=== PATIENT | female | born 1945 | race Caucasian/White ===

== ENCOUNTER 2023-09-18 10:51 | Inpatient (IN) | payer MEDICAID, OTHER ==
[~2023-09-18] VITALS: Ht 162.6 cm; Wt 74.4 kg
[~2023-09-18 10:51] MED LIST: ASPI-1497 PO; Levothyroxine Sodium PO
[2023-09-18 12:02] LABS: BASOPHILS % 0.5 % (0.0-2.0); EOSINOPHILS % 0.3 % (0.0-5.0); HEMATOCRIT. 42.9 % (36.0-48.0); HEMOGLOBIN. 14.5 g/dL (12.0-16.0); LYMPHOCYTES % 20.7 % (20.0-50.0); MEAN CORPUSCULAR HEMOGLOBIN 30.3 pg (28.0-32.0); MEAN CORPUSCULAR HGB CONC 33.7 g/dL (31.0-37.0); MEAN PLATELET VOLUME 10.1 fl (7.4-10.4); MONOCYTES % 7.2 % (2.0-8.0); NEUTROPHILS % 71.3 % (40.0-76.0); PLATELET 214 x1000/uL (130-400); RED BLOOD CELL COUNT 4.77 mill/uL (4.2-5.4); RED CELL DISTRIBUTION WIDTH 14.3 % (11.6-14.6); WHITE BLOOD COUNT 6.4 x1000/uL (4.5-11.0)
[2023-09-18 12:08] LABS: CHLORIDE 105 mEq/L (98-107); POTASSIUM 3.8 mEq/L (3.5-5.1); SODIUM 140 mEq/L (136-145)
[2023-09-18 12:09] LABS: CALCIUM 10.3 mg/dL (8.7-10.4); CARBON DIOXIDE 26 mEq/L (21-32)
[2023-09-18 12:14] LABS: CREATININE 0.9 mg/dL (0.6-1.0); GLUCOSE 113 mg/dL (70-105); UREA NITROGEN BLOOD 11 mg/dL (9-23)
[2023-09-18 12:15] LABS: TROPONIN I HIGH SENSITIVITY 5 ng/L (3.0-34)
[2023-09-18 12:16] LABS: ALANINE AMINOTRANSFERASE 35 IU/L (10-49); ALBUMIN 4.8 g/dL (3.2-4.8); ASPARTATE AMINOTRANSFERASE 22 IU/L (<34); BILIRUBIN TOTAL 0.6 mg/dL (0.1-1.0); PROTEIN TOTAL 8.3 g/dL (6.0-8.3)
[2023-09-18] MEDS ORDERED: GUAIFENESIN 200MG/10ML SUGAR FREE UDC PO PRN (14:00)
[2023-09-18] MEDS ORDERED: IPRATROPIUM/ALBUTEROL 0.5-3(2.5)MG/3ML NEB HHN PRN (14:00)
[2023-09-18] MEDS ORDERED: ACETAMINOPHEN 325MG TABLET PO PRN ×2 (14:00)
[2023-09-18] MEDS ORDERED: CLONIDINE 0.1MG TABLET PO PRN (14:00)
[2023-09-18] MEDS ORDERED: MAGNESIUM/ALUMINUM HYDROXIDE/SIMETHICONE 30ML UDC PO PRN (14:00)
[2023-09-18 15:03] LABS: CLARITY URINE CLEAR (CLEAR); COLOR URINE YELLOW (YELLOW); GLUCOSE URINE NEGATIVE (NEGATIVE); KETONES URINE NEGATIVE (NEGATIVE); LEUKOCYTE ESTERASE URINE 1+ (NEGATIVE); NITRITE URINE NEGATIVE (NEGATIVE); OCCULT BLOOD URINE NEGATIVE (NEGATIVE); PROTEIN URINE NEGATIVE (NEGATIVE); SPECIFIC GRAVITY URINE 1.006 (1.005-1.030); UROBILINOGEN URINE 0.2 E.U./dL (0.2-1.0)
[2023-09-18 15:15] LABS: BACTERIA URINE TRACE; RBC URINE 0-2 /hpf (0-2); SQUAMOUS EPITHELIAL CELL URINE 1+ /lpf (RARE/1+); YEAST URINE NONE SEEN
[2023-09-18 17:48] LABS: CREATINE KINASE MB FRACTION < 0.5 ng/mL (0.5-3.6)
[2023-09-18 17:49] LABS: DIGOXIN 0.9 ng/mL (0.8-2.0); PHOSPHORUS 4.5 mg/dL (2.5-4.9); TROPONIN I HIGH SENSITIVITY 6 ng/L (3.0-34)
[2023-09-18 17:50] LABS: CREATINE KINASE 45 IU/L (34-145)
[2023-09-18] MEDS ORDERED: LEVO100T9 PO (17:54)
[2023-09-18] MEDS ORDERED: OMEP20CA14 PO (17:54)
[2023-09-18] MEDS ORDERED: METO100T16 PO (17:54)
[2023-09-18] MEDS ORDERED: DILT360T13 PO (17:54)
[2023-09-18] MEDS ORDERED: ATOR40TA70 PO (17:54)
[2023-09-18] MEDS ORDERED: APIX5TAB PO (17:54)
[2023-09-18] MEDS ORDERED: DIGO125T80 PO (17:54)
[2023-09-18] MEDS ORDERED: FURO20TA4 PO (17:54)
[2023-09-18 17:56] VITALS: BP 104/61; PULSE 62; RESP 16; TEMP 97.3
[2023-09-18 17:58] VITALS: BP 104/61; PULSE 62; RESP 16; TEMP 97.3
[2023-09-18 20:00] VITALS: BP 100/45; RESP 19; TEMP 97.7
[2023-09-18] MEDS: METOPROLOL TARTRATE 25MG TABLET PO SCH (21:39)
[2023-09-18] MEDS: ATORVASTATIN CALCIUM 40MG TABLET PO SCH (21:52)
[2023-09-18] MEDS: DIGOXIN 125MCG TABLET PO SCH (21:52)
[2023-09-18] MEDS: FAMOTIDINE 20MG TABLET PO SCH (21:53)
[2023-09-18] MEDS: APIXABAN 5 MG TABLET PO SCH (21:53)
[2023-09-18 23:01] LABS: HEPATITIS C AB NON REACTIVE (Neg) (Negative)
[2023-09-18 23:07] LABS: HEPATITIS B SURFACE ANTIGEN NEGATIVE (Negative)
[2023-09-19] VITALS (14 sets, daily range): BP systolic 94–143; BP diastolic 43–107; PULSE 68–144; RESP 18–37; TEMP 97.5–98.4
[2023-09-19 00:35] LABS: CREATINE KINASE MB FRACTION < 0.5 ng/mL (0.5-3.6)
[2023-09-19 00:36] LABS: CREATINE KINASE 37 IU/L (34-145)
[2023-09-19 00:40] LABS: TROPONIN I HIGH SENSITIVITY < 4 ng/L (3.0-34)
[2023-09-19 06:36] LABS: BASOPHILS % 0.5 % (0.0-2.0); EOSINOPHILS % 0.8 % (0.0-5.0); HEMATOCRIT. 39.5 % (36.0-48.0); HEMOGLOBIN. 13.3 g/dL (12.0-16.0); LYMPHOCYTES % 28.8 % (20.0-50.0); MEAN CORPUSCULAR HEMOGLOBIN 29.7 pg (28.0-32.0); MEAN CORPUSCULAR HGB CONC 33.5 g/dL (31.0-37.0); MEAN CORPUSCULAR VOLUME 88.5 fL (81.0-99.0); MEAN PLATELET VOLUME 10.5 fl (7.4-10.4); MONOCYTES % 11.2 % (2.0-8.0); NEUTROPHILS % 58.7 % (40.0-76.0); PLATELET 200 x1000/uL (130-400); RED BLOOD CELL COUNT 4.47 mill/uL (4.2-5.4); RED CELL DISTRIBUTION WIDTH 14.3 % (11.6-14.6); WHITE BLOOD COUNT 7.2 x1000/uL (4.5-11.0)
[2023-09-19 06:57] LABS: CHLORIDE 104 mEq/L (98-107); POTASSIUM 3.6 mEq/L (3.5-5.1); SODIUM 141 mEq/L (136-145)
[2023-09-19 06:59] LABS: CALCIUM 9.5 mg/dL (8.7-10.4); CARBON DIOXIDE 27 mEq/L (21-32)
[2023-09-19 07:03] LABS: THYROID STIMULATING HORMONE 1.51 uIU/mL (0.55-4.78)
[2023-09-19 07:04] LABS: CREATININE 0.8 mg/dL (0.6-1.0); GLUCOSE 89 mg/dL (70-105); TRIGLYCERIDE 91 mg/dL (0-150); UREA NITROGEN BLOOD 15 mg/dL (9-23)
[2023-09-19 07:05] LABS: LDL CHOLESTEROL 78 mg/dL (5-100)
[2023-09-19 07:06] LABS: ALANINE AMINOTRANSFERASE 25 IU/L (10-49); ASPARTATE AMINOTRANSFERASE 14 IU/L (<34); BILIRUBIN TOTAL 0.5 mg/dL (0.1-1.0); CHOLESTEROL 117 mg/dL (<200); HDL CHOLESTEROL 39 mg/dL (>65); PROTEIN TOTAL 6.9 g/dL (6.0-8.3)
[2023-09-19] MEDS ORDERED: DILTIAZEM HCL 180MG CAPSULE ER 24HR PO SCH (09:00)
[2023-09-19] MEDS: DILTIAZEM HCL 5MG/ML 5ML VIAL IV NR ×2 (11:39→15:35)
[2023-09-19] MEDS: DILTIAZEM HCL 125 MG in DEXT 5% WATER 100 ML IV SCH (12:50)
[2023-09-19 13:02] LABS: T4 FREE 1.57 ng/dL (0.89-1.76)
[2023-09-19] MEDS: NITROGLYCERIN 0.4MG TABLET SL SL PRN (18:10)
[2023-09-19 19:30] LABS: CARBON DIOXIDE 23 mEq/L (21-32); CHLORIDE 104 mEq/L (98-107); POTASSIUM 3.6 mEq/L (3.5-5.1); SODIUM 138 mEq/L (136-145)
[2023-09-19 19:31] LABS: CALCIUM 9.3 mg/dL (8.7-10.4)
[2023-09-19 19:35] LABS: CREATININE 0.9 mg/dL (0.6-1.0); GLUCOSE 106 mg/dL (70-105)
[2023-09-19 19:36] LABS: UREA NITROGEN BLOOD 15 mg/dL (9-23)
[2023-09-19 19:38] LABS: PHOSPHORUS 2.7 mg/dL (2.5-4.9)
[2023-09-19] MEDS: AMIODARONE 150MG/100ML 100 ML IV NR (20:04)
[2023-09-19] MEDS ORDERED: HEPARIN 60 UNITS/KG BOLUS IV NR (20:30)
[2023-09-19] MEDS: HEPARIN 60 UNITS/KG BOLUS IV NR (20:47)
[2023-09-19] MEDS: AMIODARONE HCL 900 MG in DEXT 5% WATER 500 ML IV PRN (20:56)
[2023-09-19] MEDS: HEPARIN 25,000 UNITS PREMIX 250 ML IV SCH (21:14)
[2023-09-20] VITALS (35 sets, daily range): BP systolic 96–176; BP diastolic 53–121; PULSE 67–130; RESP 11–30; TEMP 97.4–98.6
[2023-09-20 01:11] LABS: TROPONIN I HIGH SENSITIVITY 10 ng/L (3.0-34)
[2023-09-20] MEDS ORDERED: HEPARIN BOLUS PRN aPTT 30-44 IV (02:00)
[2023-09-20] MEDS ORDERED: HEPARIN BOLUS PRN aPTT <30 IV (02:00)
[2023-09-20 04:52] LABS: TROPONIN I HIGH SENSITIVITY 13 ng/L (3.0-34)
[2023-09-20 05:02] LABS: BG BASE EXCESS 2.8 mmol/L (-2.0-2.0); BG CARBOXYHEMOGLOBIN 0.3 % (0.5-1.5); BG DEOXYHEMOGLOBIN 1.3 % (0.0-5.0); BG FRACTION INSPIRED OXYGEN 32; BG HCO3 ACT 26.6 mmol/L (22.0-26.0); BG METHEMOGLOBIN 0.1 % (0.0-1.5); BG OXYGEN SATURATION 98.7 % (92.0-98.5); BG OXYHEMOGLOBIN 98.3 % (94.0-97.0); BG PCO2 38.3 mmHg (35.0-45.0); BG PO2 152.6 mmHg (75.0-100.0); BG SAMPLE SITE RIGHT RADIAL; BG TOTAL HEMOGLOBIN 14.7 g/dL (12.0-18.0); BG VENT MODE NASAL CANNULA
[2023-09-20] MEDS ORDERED: IOHEXOL-350 100 ML BOTTLE ONE (05:07)
[2023-09-20 05:56] LABS: HEMATOCRIT. 43.1 % (36.0-48.0); HEMOGLOBIN. 14.1 g/dL (12.0-16.0); WHITE BLOOD COUNT 6.9 x1000/uL (4.5-11.0)
[2023-09-20 05:57] LABS: EOSINOPHILS % 0.3 % (0.0-5.0); LYMPHOCYTES % 20.2 % (20.0-50.0); MEAN CORPUSCULAR HEMOGLOBIN 29.9 pg (28.0-32.0); MEAN CORPUSCULAR HGB CONC 32.6 g/dL (31.0-37.0); MEAN CORPUSCULAR VOLUME 91.8 fL (81.0-99.0); MEAN PLATELET VOLUME 9.7 fl (7.4-10.4); MONOCYTES % 9.6 % (2.0-8.0); NEUTROPHILS % 62.7 % (40.0-76.0); PLATELET 223 x1000/uL (130-400); RED CELL DISTRIBUTION WIDTH 14.7 % (11.6-14.6)
[2023-09-20 05:57] LABS: CHLORIDE 104 mEq/L (98-107); POTASSIUM 3.4 mEq/L (3.5-5.1); SODIUM 139 mEq/L (136-145)
[2023-09-20 05:58] LABS: CALCIUM 9.5 mg/dL (8.7-10.4); CARBON DIOXIDE 26 mEq/L (21-32)
[2023-09-20] MEDS: LORAZEPAM 2MG/ML INJ IV NR (05:59)
[2023-09-20 06:03] LABS: CREATININE 0.9 mg/dL (0.6-1.0); GLUCOSE 119 mg/dL (70-105); UREA NITROGEN BLOOD 11 mg/dL (9-23)
[2023-09-20 06:04] LABS: TROPONIN I HIGH SENSITIVITY 12 ng/L (3.0-34)
[2023-09-20] MEDS: POTASSIUM CHLORIDE 20MEQ TABLET SR PO NR (09:00)
[2023-09-20] MEDS: AMIODARONE HCL 200 MG TABLET PO SCH (09:15)
[2023-09-20] MEDS: DILTIAZEM HCL 60MG TABLET PO SCH (09:15)
[2023-09-20] MEDS ORDERED: OXYC-662 MT (11:31)
[2023-09-20] MEDS: DOCUSATE SODIUM 100MG CAPSULE PO PRN (14:16)
[2023-09-20 18:10] LABS: PHOSPHORUS 3.9 mg/dL (2.5-4.9)
[2023-09-21] VITALS (70 sets, daily range): BP systolic 93–139; BP diastolic 35–91; PULSE 66–129; RESP 11–28; TEMP 97.7–98.5
[2023-09-21 05:53] LABS: BASOPHILS % 0.5 % (0.0-2.0); HEMATOCRIT. 40.6 % (36.0-48.0); HEMOGLOBIN. 13.6 g/dL (12.0-16.0); LYMPHOCYTES % 20.7 % (20.0-50.0); MEAN CORPUSCULAR HEMOGLOBIN 29.9 pg (28.0-32.0); MEAN CORPUSCULAR HGB CONC 33.4 g/dL (31.0-37.0); MEAN CORPUSCULAR VOLUME 89.5 fL (81.0-99.0); MEAN PLATELET VOLUME 9.3 fl (7.4-10.4); NEUTROPHILS % 67.8 % (40.0-76.0); PLATELET 195 x1000/uL (130-400); RED BLOOD CELL COUNT 4.54 mill/uL (4.2-5.4); RED CELL DISTRIBUTION WIDTH 14.3 % (11.6-14.6); WHITE BLOOD COUNT 7.4 x1000/uL (4.5-11.0)
[2023-09-21 06:05] LABS: CHLORIDE 106 mEq/L (98-107); POTASSIUM 4.3 mEq/L (3.5-5.1); SODIUM 141 mEq/L (136-145)
[2023-09-21 06:06] LABS: CALCIUM 9.5 mg/dL (8.7-10.4); CARBON DIOXIDE 28 mEq/L (21-32)
[2023-09-21 06:12] LABS: CREATININE 0.8 mg/dL (0.6-1.0); GLUCOSE 93 mg/dL (70-105); UREA NITROGEN BLOOD 9 mg/dL (9-23)
[2023-09-21] MEDS: LEVOTHYROXINE SODIUM 100MCG TABLET PO SCH (07:43)
[2023-09-21] MEDS: DILTIAZEM HCL 60MG TABLET PO SCH (12:18)
[2023-09-22] VITALS: BP 106/65; PULSE 100; RESP 18; TEMP 97.9
[2023-09-22 04:00] VITALS: BP 129/69; PULSE 58; RESP 18; TEMP 97.8
[2023-09-22 07:39] LABS: CHLORIDE 107 mEq/L (98-107); POTASSIUM 4.2 mEq/L (3.5-5.1); SODIUM 140 mEq/L (136-145)
[2023-09-22 07:40] LABS: CARBON DIOXIDE 27 mEq/L (21-32)
[2023-09-22 07:41] LABS: CALCIUM 9.4 mg/dL (8.7-10.4)
[2023-09-22 07:45] LABS: BASOPHILS % 0.4 % (0.0-2.0); CREATININE 0.8 mg/dL (0.6-1.0); EOSINOPHILS % 0.8 % (0.0-5.0); GLUCOSE 87 mg/dL (70-105); HEMATOCRIT. 41.4 % (36.0-48.0); LYMPHOCYTES % 24.6 % (20.0-50.0); MEAN CORPUSCULAR HEMOGLOBIN 29.9 pg (28.0-32.0); MEAN CORPUSCULAR HGB CONC 33.8 g/dL (31.0-37.0); MEAN CORPUSCULAR VOLUME 88.6 fL (81.0-99.0); MEAN PLATELET VOLUME 9.8 fl (7.4-10.4); MONOCYTES % 10.1 % (2.0-8.0); NEUTROPHILS % 64.1 % (40.0-76.0); PLATELET 196 x1000/uL (130-400); RED BLOOD CELL COUNT 4.67 mill/uL (4.2-5.4); RED CELL DISTRIBUTION WIDTH 14.2 % (11.6-14.6); UREA NITROGEN BLOOD 7 mg/dL (9-23); WHITE BLOOD COUNT 7.2 x1000/uL (4.5-11.0)
[2023-09-22 08:00] VITALS: BP 126/69; PULSE 72; RESP 18; TEMP 97
[2023-09-22] MEDS ORDERED: LIDOCAINE 2% 6ML GLYDO MM ONE (08:24)
[2023-09-22] MEDS ORDERED: TETRACAINE/BENZOCAINE/BUTAMBEN 20 GM SPRAY MM ONE (08:25)
[2023-09-22] MEDS ORDERED: FENTANYL CITRATE/PF 50MCG/ML 2ML VIAL ONE (09:30)
[2023-09-22] MEDS ORDERED: MIDAZOLAM HCL 2 MG/2 ML VIAL ONE ×3 (09:30→15:37)
[2023-09-22] MEDS ORDERED: HEPARIN 1000 UNITS/ML 10ML ONE (09:52)
[2023-09-22 12:00] VITALS: BP 118/56; PULSE 73; RESP 18; TEMP 97.7
[2023-09-22] MEDS: AMIODARONE HCL 200 MG TABLET PO NR (13:03)
[2023-09-22] MEDS ORDERED: VANCOMYCIN HCL 500 MG/VIAL ONE (14:32)
[2023-09-22 16:00] VITALS: BP 116/43; PULSE 70; RESP 20; TEMP 98.6
[2023-09-22 20:00] VITALS: BP 120/53; PULSE 70; RESP 19; TEMP 97.5
[2023-09-22] MEDS: ONDANSETRON HCL 4MG/2ML INJ IV PRN (23:30)
[2023-09-23] VITALS: BP 121/47; PULSE 72; RESP 18; TEMP 97.2
[2023-09-23 04:49] VITALS: BP 117/56; PULSE 72; RESP 18; TEMP 97.7
[2023-09-23 06:49] LABS: BASOPHILS % 0.7 % (0.0-2.0); EOSINOPHILS % 1.3 % (0.0-5.0); HEMOGLOBIN. 13.1 g/dL (12.0-16.0); LYMPHOCYTES % 27.7 % (20.0-50.0); MEAN CORPUSCULAR HEMOGLOBIN 30.1 pg (28.0-32.0); MEAN CORPUSCULAR HGB CONC 33.6 g/dL (31.0-37.0); MEAN CORPUSCULAR VOLUME 89.7 fL (81.0-99.0); MEAN PLATELET VOLUME 10.1 fl (7.4-10.4); MONOCYTES % 10.7 % (2.0-8.0); NEUTROPHILS % 59.6 % (40.0-76.0); PLATELET 171 x1000/uL (130-400); RED BLOOD CELL COUNT 4.35 mill/uL (4.2-5.4); RED CELL DISTRIBUTION WIDTH 14.3 % (11.6-14.6); WHITE BLOOD COUNT 6.2 x1000/uL (4.5-11.0)
[2023-09-23 07:19] LABS: CARBON DIOXIDE 26 mEq/L (21-32); CHLORIDE 108 mEq/L (98-107); POTASSIUM 4.4 mEq/L (3.5-5.1); SODIUM 138 mEq/L (136-145)
[2023-09-23 07:20] LABS: CALCIUM 9.5 mg/dL (8.7-10.4)
[2023-09-23 07:24] LABS: CREATININE 0.9 mg/dL (0.6-1.0)
[2023-09-23 07:25] LABS: GLUCOSE 90 mg/dL (70-105); UREA NITROGEN BLOOD 12 mg/dL (9-23)
[2023-09-23 07:27] LABS: PHOSPHORUS 4.2 mg/dL (2.5-4.9)
[2023-09-23 08:00] VITALS: BP 120/82; PULSE 69; RESP 20; TEMP 97.7
[2023-09-23 12:00] VITALS: BP 117/55; PULSE 63; RESP 18; TEMP 98
[2023-09-23 16:00] VITALS: BP 126/64; PULSE 68; RESP 18; TEMP 97.9
[2023-09-23 20:35] VITALS: BP 115/39; PULSE 64; RESP 18; TEMP 99.1
[2023-09-24 00:25] VITALS: BP 117/46; PULSE 63; RESP 18; TEMP 98.2
[2023-09-24 04:37] VITALS: BP 125/50; PULSE 63; RESP 18; TEMP 97.9
[2023-09-24 07:02] LABS: BASOPHILS % 0.6 % (0.0-2.0); EOSINOPHILS % 1.4 % (0.0-5.0); HEMATOCRIT. 37.1 % (36.0-48.0); HEMOGLOBIN. 12.8 g/dL (12.0-16.0); LYMPHOCYTES % 28.6 % (20.0-50.0); MEAN CORPUSCULAR HEMOGLOBIN 30.2 pg (28.0-32.0); MEAN CORPUSCULAR HGB CONC 34.3 g/dL (31.0-37.0); MEAN CORPUSCULAR VOLUME 87.9 fL (81.0-99.0); MONOCYTES % 9.9 % (2.0-8.0); NEUTROPHILS % 59.5 % (40.0-76.0); PLATELET 179 x1000/uL (130-400); RED BLOOD CELL COUNT 4.22 mill/uL (4.2-5.4); RED CELL DISTRIBUTION WIDTH 14.6 % (11.6-14.6); WHITE BLOOD COUNT 6.4 x1000/uL (4.5-11.0)
[2023-09-24 07:12] LABS: CARBON DIOXIDE 26 mEq/L (21-32); CHLORIDE 107 mEq/L (98-107); POTASSIUM 4.3 mEq/L (3.5-5.1); SODIUM 140 mEq/L (136-145)
[2023-09-24 07:17] LABS: CREATININE 0.6 mg/dL (0.6-1.0)
[2023-09-24 07:18] LABS: GLUCOSE 86 mg/dL (70-105); UREA NITROGEN BLOOD 7 mg/dL (9-23)
[2023-09-24 07:20] LABS: PHOSPHORUS 3.6 mg/dL (2.5-4.9)
[2023-09-24 08:00] VITALS: BP 133/48; PULSE 70; RESP 19; TEMP 97.4
[2023-09-24] MEDS: AMIODARONE HCL 200 MG TABLET PO SCH (08:20)
[2023-09-24 09:04] VITALS: BP 133/48; PULSE 70; RESP 19; TEMP 97.4
[2023-09-24] MEDS ORDERED: METO25TA6 PO ×2 (10:11→11:06)
[2023-09-24] MEDS ORDERED: AMI2 PO ×2 (10:11→11:06)
[2023-09-24] MEDS ORDERED: DILT90CA MT ×2 (10:18→11:06)
[2023-09-24 10:47] VITALS: BP 143/62; PULSE 70; TEMP 97.8; O2SAT 99
[2023-09-24] MEDS ORDERED: DILTIAZEM HCL 30MG TABLET PO SCH (14:00)
== END 2023-09-24 11:45 | disposition home or self-care (01) | DRG 201 ==
LOC: ER 11:52 → EDBEDREQTM 12:55 → EDBEDREQ 12:55 → 7EST 17:37 → 5EST 09-19 11:10 → MICUSO 09-20 02:50 → 8WST 09-21 22:02
PROVIDERS: ADMIT Preventive Medicine Clinical Informatics; ATTEND Preventive Medicine Clinical Informatics
PROC: 5A2204Z Restoration of Cardiac Rhythm, Single (ICD-10-PCS; principal; 2023-09-22)
PROC: B24BZZ4 Ultrasonography of Heart with Aorta, Transesophageal (ICD-10-PCS; 2023-09-22)
DX: I48.19 Other persistent atrial fibrillation (principal); J96.01 Acute respiratory failure with hypoxia; E03.9 Hypothyroidism, unspecified; E78.5 Hyperlipidemia, unspecified; E11.9 Type 2 diabetes mellitus without complications; I48.92 Unspecified atrial flutter; I49.3 Ventricular premature depolarization; E87.6 Hypokalemia; F17.210 Nicotine dependence, cigarettes, uncomplicated; I10 Essential (primary) hypertension; Z86.73 Personal history of transient ischemic attack (TIA), and cerebral infarction without residual deficits; Z59.7 Insufficient social insurance and welfare support; Z79.01 Long term (current) use of anticoagulants; Z79.899 Other long term (current) drug therapy; Z82.49 Family history of ischemic heart disease and other diseases of the circulatory system
CPT/HCPCS: 36415; 36600; 71045; 71275; 80048; 80053; 80061; 80162; 81003; 82375; 82533; 82550; 82553; 82805; 82962; 83036; 83605; 83735; 83880; 84100; 84436; 84439; 84443; 84481; 84484; 85025; 85379; 86705; 87340; 92960; 93005; 93306; 93312; 93970; 99285; J0282; J1644; J2060; J2250; J2405; J3010; J3370; J3490; J7060; Q9967

== ENCOUNTER 2023-09-30 10:39 | Emergency (ER) | payer MEDICAID ==
[~2023-09-30] VITALS: Ht 162.6 cm; Wt 80.0 kg
[~2023-09-30 10:39] MED LIST changes: +AMI2 PO; +APIX5TAB PO; +ATOR40TA70 PO; +DIGO125T80 PO; +DILT90CA MT; +FURO20TA4 PO; +LEVO100T9 PO; -Levothyroxine Sodium PO; +METO25TA6 PO; +OMEP20CA14 PO
[2023-09-30 10:44] VITALS: BP 124/49; PULSE 68; RESP 18; TEMP 98.6; O2SAT 99
[2023-09-30 11:45] LABS: BASOPHILS % 0.4 % (0.0-2.0); EOSINOPHILS % 0.1 % (0.0-5.0); HEMATOCRIT. 40.1 % (36.0-48.0); HEMOGLOBIN. 13.4 g/dL (12.0-16.0); LYMPHOCYTES % 19.5 % (20.0-50.0); MEAN CORPUSCULAR HEMOGLOBIN 29.4 pg (28.0-32.0); MEAN CORPUSCULAR HGB CONC 33.5 g/dL (31.0-37.0); MEAN CORPUSCULAR VOLUME 87.7 fL (81.0-99.0); MEAN PLATELET VOLUME 9.2 fl (7.4-10.4); MONOCYTES % 9.6 % (2.0-8.0); NEUTROPHILS % 70.4 % (40.0-76.0); PLATELET 197 x1000/uL (130-400); RED BLOOD CELL COUNT 4.57 mill/uL (4.2-5.4); RED CELL DISTRIBUTION WIDTH 14.3 % (11.6-14.6); WHITE BLOOD COUNT 7.1 x1000/uL (4.5-11.0)
[2023-09-30 11:51] LABS: CHLORIDE 107 mEq/L (98-107); SODIUM 139 mEq/L (136-145)
[2023-09-30 11:52] LABS: CARBON DIOXIDE 23 mEq/L (21-32)
[2023-09-30 11:53] LABS: CALCIUM 9.7 mg/dL (8.7-10.4)
[2023-09-30 11:57] LABS: CREATININE 0.9 mg/dL (0.6-1.0); GLUCOSE 107 mg/dL (70-105); UREA NITROGEN BLOOD 11 mg/dL (9-23)
[2023-09-30 12:48] LABS: ALANINE AMINOTRANSFERASE 18 IU/L (10-49); LACTIC ACID 2.7 mmol/L (0.4-2.0)
[2023-09-30 12:49] LABS: ALBUMIN 4.4 g/dL (3.2-4.8); ASPARTATE AMINOTRANSFERASE 22 IU/L (<34); BILIRUBIN DIRECT 0.2 mg/dL (<=3.0); BILIRUBIN TOTAL 0.5 mg/dL (0.1-1.0); PARTIAL THROMBOPLASTIN TIME 28.8 sec (23.4-31.0); PROTEIN TOTAL 7.6 g/dL (6.0-8.3); PROTHROMBIN TIME 11.4 sec (9.6-11.0)
[2023-09-30 13:00] LABS: TROPONIN I HIGH SENSITIVITY < 4 ng/L (3.0-34)
[2023-09-30 14:58] LABS: TROPONIN I HIGH SENSITIVITY < 4 ng/L (3.0-34)
[2023-09-30] MEDS: SODIUM CHLORIDE 0.9% 500 ML IV ONE (15:11)
== END 2023-09-30 15:20 | disposition home or self-care (01) ==
LOC: ER 11:08
DX: R42 Dizziness and giddiness (principal); R06.02 Shortness of breath; I11.0 Hypertensive heart disease with heart failure; I50.9 Heart failure, unspecified; E11.9 Type 2 diabetes mellitus without complications; Z79.899 Other long term (current) drug therapy
CPT/HCPCS: 99285; 71045; 80076; 80048; 83880; 83605; 83690; 85025; 85610; 85730; 84484; 93005; 36415; J7040